=== PATIENT | male | born 1955 | race African-American/Black ===

== ENCOUNTER → 2020-01-19 | Outpatient (CLI) | payer OTHER ==
[~2020-01-19] MED LIST: AMIODARONE HCL400 MG PO; ASA81BEC PO; BENAZEPRIL HCL40 MG PO; CARVEDILOL25 MG PO; CLONIDINE HCL0.1 M1 PO; FUROSEMIDE 20 M20 MG PO; GLIMEPIRIDE1 MG PO; ISOSORBIDE DINI20 M2 PO; KLOR-CON M2020 MEQ PO; LIPITOR 20 MG T20 M1 PO; VITAMIN D-40010 MCG PO; XARELTO15 MG PO; ZITHROMAX TRI-500 MG PO
[2020-01-19 11:26] LABS: ABSOLUTE BASOPHILS 0.1 thou/uL (0.0-0.2); ABSOLUTE EOSINOPHILS 0.1 thou/uL (0.0-0.7); ABSOLUTE LYMPHOCYTES 1.6 thou/uL (0.8-5.3); ABSOLUTE MONOCYTES 1.1 thou/uL (0.0-1.2); BASOPHILS 0.5 %; EOSINOPHILS 0.9 %; HEMATOCRIT 38.6 % (42.0-52.0); HEMOGLOBIN 12.1 gm/dL (14.0-18.0); LYMPHOCYTES 14.8 %; MCH 28.5 pg (26.0-34.0); MCHC 31.4 g/dL (28.0-37.0); MCV 90.8 fL (80.0-100.0); MONOCYTES 9.9 %; MPV 9.4 fl. (7.2-11.1); NUCLEATED RBCS 0 /100WBC; PLATELET COUNT* 239 thou/uL (150-400); POLYS 73.9 %; RBC 4.25 mil/uL (4.50-6.00); RDW-CV 19.4 % (10.5-14.5); WBC 10.8 thou/uL (4.0-11.0)
[2020-01-19 11:38] LABS: ALBUMIN 3.4 g/dL (3.4-5.0); CALCIUM 8.8 mg/dL (8.5-10.1); CREATININE 2.7 mg/dL (0.6-1.3); MAGNESIUM 2.3 mg/dL (1.8-2.4); POTASSIUM 3.4 mmol/L (3.5-5.1); TOTAL BILIRUBIN 0.7 mg/dL (<0.1-1.0); TOTAL PROTEIN 7.7 g/dL (6.4-8.2)
== END ==
LOC: M.LAB 10:00
PROVIDERS: ATTEND Nurse Practitioner
DX: I48.92 Unspecified atrial flutter (principal); N18.3 Chronic kidney disease, stage 3 (moderate); M43.8X4 Other specified deforming dorsopathies, thoracic region; Z79.899 Other long term (current) drug therapy

== ENCOUNTER 2020-02-01 10:50 | Inpatient (IN) | payer OTHER ==
[~2020-02-01] VITALS: Ht 180.3 cm; Wt 104.3 kg
[2020-02-01 10:55] VITALS: BP 154/109
[2020-02-01] MEDS ORDERED: GLIMEPIRIDE1 MG PO (11:04)
[2020-02-01] MEDS ORDERED: CARVEDILOL25 MG PO (11:04)
[2020-02-01] MEDS ORDERED: BENAZEPRIL HCL40 MG PO (11:05)
[2020-02-01] MEDS ORDERED: FUROSEMIDE 20 M20 MG PO (11:05)
[2020-02-01] MEDS ORDERED: CLONIDINE HCL0.1 M1 PO (11:05)
[2020-02-01] MEDS ORDERED: ASA81BEC PO (11:05)
[2020-02-01] MEDS ORDERED: VITAMIN D-40010 MCG PO (11:06)
[2020-02-01] MEDS ORDERED: ISOSORBIDE DINI20 M2 PO ×2 (11:06)
[2020-02-01] MEDS ORDERED: KLOR-CON M2020 MEQ PO (11:07)
[2020-02-01] MEDS ORDERED: XARELTO15 MG PO (11:07)
[2020-02-01] MEDS ORDERED: LIPITOR 20 MG T20 M1 PO (11:07)
[2020-02-01 11:16] LABS: ABSOLUTE BASOPHILS 0.1 thou/uL (0.0-0.2); ABSOLUTE EOSINOPHILS 0.1 thou/uL (0.0-0.7); ABSOLUTE LYMPHOCYTES 1.1 thou/uL (0.8-5.3); ABSOLUTE MONOCYTES 1.2 thou/uL (0.0-1.2); BASOPHILS 0.8 %; EOSINOPHILS 0.8 %; HEMATOCRIT 36.4 % (42.0-52.0); HEMOGLOBIN 11.5 gm/dL (14.0-18.0); LYMPHOCYTES 7.4 %; MCH 28.4 pg (26.0-34.0); MCHC 31.4 g/dL (28.0-37.0); MCV 90.5 fL (80.0-100.0); MONOCYTES 8.3 %; MPV 10.7 fl. (7.2-11.1); NUCLEATED RBCS 0 /100WBC; PLATELET COUNT* 213 thou/uL (150-400); POLYS 82.7 %; RBC 4.03 mil/uL (4.50-6.00); WBC 14.5 thou/uL (4.0-11.0)
[2020-02-01 11:28] LABS: APTT 30.8 Seconds (25.0-31.3); INR 1.5; PROTIME 15.6 Seconds (9.20-11.50)
[2020-02-01 11:45] LABS: CALCIUM 8.8 mg/dL (8.5-10.1); POTASSIUM 3.9 mmol/L (3.5-5.1)
[2020-02-01 11:48] LABS: ALBUMIN 3.3 g/dL (3.4-5.0); CK-MB MASS 0.7 ng/mL (<0.5-3.6); MAGNESIUM 2.3 mg/dL (1.8-2.4); TOTAL PROTEIN 7.2 g/dL (6.4-8.2)
--- NOTE | 2020-02-01 16:20 | EKG ---
[place] [address] ELECTROCARDIOGRAM REPORT Name: ALEX JOSHI Room: [place] [address] ADM IN [facility]#: [id number] Admission: 02/01/20 Attend Phys: Laura urban Sa Discharge: Date of : 53 Date of Service: 02/01/20 1058 Report #: [id number] THIS REPORT FOR: //name// [facility] ED Test Date: 2020-02-01 Test Time: 10:58:06 Pat Name: ALEX JOSHI Department: Room: [facility] Gender: M Yardage Control Clerk: EDUARD : 1955 Requested By: Jose D Fish Order Number: [id number] MD: Edmund Maurer Measurements Intervals [place] Rate: 112 P: 90 [place]: 116 QRS: 2 QRSD: 88 T: 143 QT: 337 QTc: 460 Interpretive Statements Sinus tachycardia Repol abnrm, possible ischemia Baseline wander in lead(s) I,II,aVR No previous ECG available for comparison Electronically Signed On 02-01-2020 16:20:10 CDT by Edmund Maurer [email or web address] <ELECTRONICALLY SIGNED> By: Edmund Maurer MD, [facility] 02/01/20 1620 1058 1058 Edmund Maurer MD, [facility] /EPI
[2020-02-01 17:22] VITALS: BP 142/103
[2020-02-01 18:00] VITALS: BP 119/90
[2020-02-01 18:09] VITALS: BP 137/104
--- NOTE | 2020-02-01 18:38 | NUR ---
PT ADMITTED TO ROOM 226 AROUND 1800 WITH DX CHF EXACERBATION. PT ON ENHANCED PRECAUTIONS ISOLATION TO RULE OUT COVID. TOLERATING RA WITH SATS >92%. PT TO BE NPO AFTER MIDNIGHT FOR CARDIOLOGY CONSULT. NO OTHER CONCERNS AT THIS TIME. CLWR. WCTM.
[2020-02-01 20:00] VITALS: BP 128/84
[2020-02-02 00:40] VITALS: BP 116/85
[2020-02-02 04:10] VITALS: BP 130/100
[2020-02-02 05:17] LABS: CALCIUM 8.9 mg/dL (8.5-10.1); CREATININE 3.4 mg/dL (0.6-1.3); MAGNESIUM 2.5 mg/dL (1.8-2.4); PHOSPHORUS* 5.6 mg/dL (2.5-4.9); POTASSIUM 3.8 mmol/L (3.5-5.1)
[2020-02-02 05:35] LABS: HEMATOCRIT 35.3 % (42.0-52.0); HEMOGLOBIN 11.2 gm/dL (14.0-18.0); MCH 28.7 pg (26.0-34.0); MCHC 31.7 g/dL (28.0-37.0); MCV 90.3 fL (80.0-100.0); MPV 11.2 fl. (7.2-11.1); RBC 3.91 mil/uL (4.50-6.00); RDW-CV 20.1 % (10.5-14.5); WBC 13.7 thou/uL (4.0-11.0)
--- NOTE | 2020-02-02 06:27 | NUR ---
ASSUMED PT CARE AT 1915. NURSING ASSESSMENT COMPLETED AT START OF SHIFT. HOURLY ROUNDING COMPLETED. IV AMIODARONE INFUSING. HOURLY ROUNDING COMPLETED. PT CONTINUES ON ENHANCED PRECAUTIONS AWAITING COVID-19 RESULTS. NPO AFTER MIDNIGHT FOR CARDIOLOGY. 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 CALL LIGHT WITHIN REACH.
[2020-02-02 08:00] VITALS: BP 113/80
--- NOTE | 2020-02-02 08:41 | CON ---
[address] [address] CONSULTATION Name: TREVONCHADWICKALEX Room: [address] IN M.R.#: [id number] Admission: 02/01/20 Attend Phys: Laura Sharma Discharge: Date of : 53 Report #: [id number] THIS REPORT FOR: //name// cc: Rick Jones MD, Khanh MD ~ THIS REPORT FOR: //name// CC: Laura Caraballo DATE OF SERVICE: 02/01/2020 INDICATION: Acute on chronic systolic heart failure and atrial fibrillation with rapid ventricular response rate. HISTORY OF PRESENT ILLNESS: The patient is a very pleasant 64-year-old gentleman who is well known to our service. He has a history of nonischemic cardiomyopathy, chronic systolic heart failure, hypertension, dyslipidemia, obstructive sleep apnea, paroxysmal atrial flutter and chronic renal insufficiency. Historically, the ejection fraction had been 40-45%. By echocardiogram today, his ejection fraction has fallen to 20-25%. He is having symptoms of increased shortness of breath, dyspnea and orthopnea. He has had increased lower extremity edema. EKG shows atrial fibrillation with a rapid ventricular response rate. The patient had been on an amiodarone load with the thought of cardioversion in the near future. He is anticoagulated and having no bleeding problems. He is without other cardiac complaint. PAST MEDICAL HISTORY: 1. Nonischemic cardiomyopathy. 2. Chronic systolic heart failure. 3. Hyperlipidemia. 4. Obstructive sleep apnea. 5. Hypertension. 6. Chronic renal insufficiency. 7. Type 2 diabetes mellitus. FAMILY HISTORY: Positive for heart disease in his mother. SOCIAL HISTORY: The patient is a lifelong nonsmoker. He drinks alcohol rarely. HOME MEDICATIONS: Amiodarone 200 mg daily, atorvastatin 10 mg daily, Lotensin 40 mg daily, carvedilol 25 mg b.i.d., clonidine 0.1 mg p.o. b.i.d., furosemide 20 mg daily, isosorbide dinitrate 20 mg b.i.d., Xarelto 15 mg daily, vitamin D3 of [address] [place] [address] CONSULTATION Name: TREVONCHADWICKALEX Wagoner Room: [address]#: [id number] Admission: 02/01/20 Attend Phys: Laura Sharma Discharge: Date of : 53 Report #: [id number] ALLERGIES: No known drug allergies. REVIEW OF SYSTEMS: On 14-point review of systems, he denies any chills, fever or weight loss. No history of bleeding problems. He denies chest pain or claudication. He does have some lower extremity swelling. He denies syncope. He has had some palpitations and some orthopnea. He denies syncope. He does have shortness of breath with activity. He denies shortness of breath at rest. He denies cold or heat intolerance. He has no bleeding problems. He denies any recent hives or rashes. He denies any myalgias or joint pain. He denies abdominal pain, nausea, vomiting, or diarrhea. He denies dizziness, lightheadedness or syncope. PHYSICAL EXAMINATION: VITAL SIGNS: Blood pressure 154/102, pulses in the 110s and irregular. GENERAL: This is a pleasant gentleman who is in no distress. Mood and affect appropriate. HEENT: Extraocular muscles intact. Mucous membranes are moist. NECK: Shows jugular venous distention without bruit. CHEST: Reveals diminished breath sounds. I do not appreciate navin rales. CARDIAC: Reveals a tachycardic rhythm that is irregularly irregular. ABDOMEN: Reveals normal bowel sounds. The abdomen is soft, nontender. EXTREMITIES: Shows 1+ pedal and ankle edema. LABORATORY DATA: A 12-lead EKG shows atrial fibrillation with a rapid ventricular response rate. There are no acute ST or T-wave abnormalities. IMPRESSION AND RECOMMENDATIONS: 1. Persistent atrial fibrillation/flutter with rapid ventricular response rate. We will place the patient on amiodarone drip with a bolus and plan for cardioversion. Continue anticoagulation. 2. Nonischemic cardiomyopathy with an EF that appears worse, likely due to rapid ventricular response rate to his atrial arrhythmias. Consider rhythm control. Consider ablation if this fails. We will adjust hypertensive and heart failure medications as tolerated. 3. Hypertension. Blood pressure mildly elevated at this time. Increasing carvedilol to 50 mg twice daily. Continue clonidine and hydralazine at current doses. 4. Chronic renal insufficiency, presently stable. We will obtain labs in a.m. 5. The patient on amiodarone. Orders for metabolic profile, thyroid function studies, chest x-rays submitted. [address] [address] CONSULTATION Name: ALEX JOSHI Room: 226-[facility] IN MJose Carlos.#: [id number] Admission: 02/01/20 Attend Phys: Laura Sharma Discharge: Date of : 53 Report #: [id number] 6. Acute on chronic systolic heart failure. Continue aggressive treatment with medication. We will give IV furosemide today for symptomatic relief. <ELECTRONICALLY SIGNED> By: Pedrito Caraballo MD, FACC 02/02/20 0841 1711 1730Micelizabeth Caraballo MD, FACC /nt
--- NOTE | 2020-02-02 08:45 | NUR ---
SPOKE WITH PT.ON PHONE 2ND COVID TEST STILL PENDING. HE SAID HIS GIRLFRIEND,ROSANA LIVES WITH HIM. HE IS INDEPENDEMT AMD A RETIRED SW ONLY DME IS A CPAP, NO O2. DISCUSSED AD AND DPOAS. RN,GONZALO WILL GIVE HIM ONE TO TAKE HOME AND FILL OUT. HE KNOWS IT NEEDS TO BE NOTARIZED. HE WILL HAVE CARDIOVERSION THIS AM AND THEN HOPES TO GO HOME. NO DISCHARGE NEEDS IDENTIFIED.
[2020-02-02 10:00] VITALS: BP 113/80
[2020-02-02] MEDS ORDERED: AMIODARONE HCL400 MG PO (12:20)
[2020-02-02] MEDS ORDERED: ZITHROMAX TRI-500 MG PO (12:23)
--- NOTE | 2020-02-02 13:27 | NUR ---
VS CHARTED, AFLUTTER ON TELE- CARDIOVERTED TO SR, ROOM AIR, A&OX4, UP AD DIGNA, HOURLY ROUNDING PERFORMED, COVID SECOND TEST PENDING- ENHANCED ISOLATION, REC DISCHARGE ORDERS, REVIEWED WITH PATIENT, HF EDUCATION COMPLETED, CARD. OLGA LIDIA MONDRAGON CAME AND DISCUSSED AMIODORONE LOADING DOSE, TELE MONITOR AND IVS REMOVED WITHOUT COMPLICATION, PATIENT TAKEN TO ER EXIT BY NURSING STAFF IN WHEELCHAIR, PICKED UP IN FAMILY CAR BY SPOUSE
--- NOTE | 2020-02-07 08:44 | CARD ---
[address] [address] CARDIAC CATH REPORT Name: ALEX JOSHI Ciaran Room: [address]R#: [id number] Admission: 02/01/20 Attend Phys: Laura Sharma Discharge: 02/02/20 Date of : 53 Report #: [id number] THIS REPORT FOR: //name// cc: Rick Jones MD, Khanh MD ~ CC: Dr. Karen Brown CARDIAC PROCEDURE PROCEDURE: DC cardioversion. INDICATION: Persistent atrial flutter. DESCRIPTION OF PROCEDURE: After informed consent was obtained, the patient was given intravenous Versed and fentanyl for conscious sedation. Once the patient was adequately sedated, he was cardioverted from atrial flutter to normal sinus rhythm with a single biphasic shock of 300 joules. The patient tolerated the procedure well without complication. IMPRESSION: 1. Persistent atrial flutter. 2. Successful direct current cardioversion to normal sinus rhythm. <ELECTRONICALLY SIGNED> By: Pedrito Caraballo MD, [facility] 02/07/20 0844 0834 0849Micelizabeth Caraballo MD, FACC /nt
== END 2020-02-02 12:40 | disposition home or self-care (01) | DRG 291 ==
LOC: M.ERS 10:50 → M.2W 12:49 → M.TBA-ER 12:49 → M.2W 18:02
PROVIDERS: Family Medicine; ADMIT Family Medicine; ATTEND Family Medicine
PROC: 5A2204Z Restoration of Cardiac Rhythm, Single (ICD-10-PCS; principal; 2020-02-01)
DX: I13.0 Hypertensive heart and chronic kidney disease with heart failure and stage 1 through stage 4 chronic kidney disease, or unspecified chronic kidney disease (principal); I50.23 Acute on chronic systolic (congestive) heart failure; J18.9 Pneumonia, unspecified organism; R65.11 Systemic inflammatory response syndrome (SIRS) of non-infectious origin with acute organ dysfunction; N17.9 Acute kidney failure, unspecified; E44.1 Mild protein-calorie malnutrition; I48.92 Unspecified atrial flutter; I48.19 Other persistent atrial fibrillation; N18.3 Chronic kidney disease, stage 3 (moderate); E11.22 Type 2 diabetes mellitus with diabetic chronic kidney disease; E78.5 Hyperlipidemia, unspecified; F12.90 Cannabis use, unspecified, uncomplicated; I42.8 Other cardiomyopathies; G47.33 Obstructive sleep apnea (adult) (pediatric); T50.2X5A Adverse effect of carbonic-anhydrase inhibitors, benzothiadiazides and other diuretics, initial encounter; Z20.828 Contact with and (suspected) exposure to other viral communicable diseases; Y92.89 Other specified places as the place of occurrence of the external cause; Z82.49 Family history of ischemic heart disease and other diseases of the circulatory system; Z68.32 Body mass index [BMI] 32.0-32.9, adult; Z79.82 Long term (current) use of aspirin; Z79.899 Other long term (current) drug therapy

== ENCOUNTER → 2020-06-11 | Outpatient (CLI) | payer OTHER ==
[2020-06-11 11:20] LABS: ALBUMIN 2.5 g/dL (3.4-5.0); CALCIUM 8.5 mg/dL (8.5-10.1); CREATININE 2.9 mg/dL (0.6-1.3); POTASSIUM 3.4 mmol/L (3.5-5.1); TOTAL BILIRUBIN 0.8 mg/dL (<0.1-1.0); TOTAL PROTEIN 6.2 g/dL (6.4-8.2)
== END ==
LOC: M.LAB 10:38
PROVIDERS: ATTEND Registered Nurse
DX: I50.42 Chronic combined systolic (congestive) and diastolic (congestive) heart failure (principal)

== ENCOUNTER 2020-06-14 02:50 | Inpatient (IN) | payer OTHER ==
[2020-06-14] VITALS (15 sets, daily range): BP systolic 111–210; BP diastolic 66–91
[~2020-06-14] VITALS: Ht 182.9 cm; Wt 108.7 kg
[2020-06-14 03:48] LABS: HEMATOCRIT 33.1 % (42.0-52.0); HEMOGLOBIN 9.9 gm/dL (14.0-18.0); MCHC 29.8 g/dL (28.0-37.0); MCV 73.9 fL (80.0-100.0); MPV 9.3 fl. (7.2-11.1); NUCLEATED RBCS 0 /100WBC; PLATELET COUNT* 191 thou/uL (150-400); RBC 4.48 mil/uL (4.50-6.00); RDW-CV 26.3 % (10.5-14.5); WBC 14.6 thou/uL (4.0-11.0)
[2020-06-14 04:03] LABS: CALCIUM 8.4 mg/dL (8.5-10.1); CREATININE 2.9 mg/dL (0.6-1.3); POTASSIUM 3.7 mmol/L (3.5-5.1)
[2020-06-14 04:05] LABS: INR 1.8; PROTIME 18.2 Seconds (9.20-11.50)
[2020-06-14 04:17] LABS: ALBUMIN 2.3 g/dL (3.4-5.0); TOTAL BILIRUBIN 2.4 mg/dL (<0.1-1.0); TOTAL PROTEIN 6.6 g/dL (6.4-8.2)
[2020-06-14 06:57] LABS: ABSOLUTE LYMPHOCYTES 0.4 thou/uL (0.8-5.3); ABSOLUTE MONOCYTES 1.5 thou/uL (0.0-1.2); ABSOLUTE NEUTROPHILS 12.7 thou/uL (1.6-8.1); PLATELET ESTIMATE ADEQUATE; TARGET CELLS 2+
[2020-06-14 06:59] LABS: ANISOCYTOSIS 3+; HYPOCHROMASIA 2+; MICROCYTES 2+
[2020-06-14 07:01] LABS: SCHISTOCYTES 1+
--- NOTE | 2020-06-14 08:23 | NUR ---
0815 RESIDENT PHYSICIAN AT BEDSIDE [address]23 DR VILLA AT BEDSIDE
--- NOTE | 2020-06-14 09:27 | EKG ---
[place] [address] ELECTROCARDIOGRAM REPORT Name: ALEX JOSHI Room: [address] ADM IN .R.#: [id number] Admission: 06/14/20 Attend Phys: Jania Dos Santos Discharge: Date of : 53 Date of Service: 06/14/20 0305 Report #: [id number] THIS REPORT FOR: //name// [facility] ED Test Date: 2020-06-14 Test Time: 03:05:55 Pat Name: ALEX JOSHI Department: Room: [facility] Gender: M Clinical Quality Analyst: YADIRA : 1955 Requested By: Mackenzie Constantino Order Number: [id number] MD: James Ahn Measurements Intervals [place] Rate: 76 P: 4 [place]: 179 QRS: -7 QRSD: 95 T: 190 QT: 366 QTc: 412 Interpretive Statements Sinus rhythm Borderline repolarization abnormality Compared to ECG 02/01/2020 10:58:06 Sinus tachycardia no longer present Possible ischemia no longer present Electronically Signed On 06-14-2020 9:27:04 HAM STRIPPER by James Ahn [email or web address] <ELECTRONICALLY SIGNED> By: James Ahn MD, FACC 06/14/20 0927 0305 James Ahn MD, [facility] /EPI
[2020-06-14 14:13] LABS: CALCIUM 8.7 mg/dL (8.5-10.1); POTASSIUM 3.8 mmol/L (3.5-5.1)
[2020-06-14 14:16] LABS: PHOSPHORUS* 4.9 mg/dL (2.5-4.9)
--- NOTE | 2020-06-14 16:33 | CON ---
[address] [address] CONSULTATION Name: ALEX JOSHI Room: [address] IN .R.#: [id number] Admission: 06/14/20 Attend Phys: Darian Raman Discharge: Date of : 53 Report #: [id number] THIS REPORT FOR: //name// cc: Rick Jones MD, Khanh MD ~ DATE OF SERVICE: 06/14/2020 CARDIOLOGY CONSULTATION PRIMARY CARE PHYSICIAN: Rick Jones MD HISTORY OF PRESENT ILLNESS: The patient is a 65-year-old single black male who I was asked to see in the ICU today because of his history of a cardiomyopathy. The patient has an extensive past medical history. He has been followed by my partner, Dr. Caraballo. He has an ejection fraction of 20% in the past. In January of this year, he presented with atrial flutter and was cardioverted and placed on amiodarone and Xarelto. He was actually admitted to [facility] in [place] 2 weeks ago with shortness of breath and edema. He was diuresed. He had an echocardiogram at that time that showed an ejection fraction of less than 20%, left atrial enlargement, moderate mitral regurgitation. PA pressure 75 mmHg. The patient actually saw my nurse practitioner, Halley Urena 3 days ago and he was started on hydralazine for his cardiomyopathy. He does get short of breath with exertion, but his edema has improved. He denies recent fever, cough, chest pain, palpitations. He is scheduled to undergo defibrillator implantation in the future. He was doing well until last night, when he complained of abdominal discomfort. He was brought to the Emergency Room and admitted with an acute abdomen. Cardiology consultation requested. Denied any vomiting, diarrhea. PAST MEDICAL HISTORY: Otherwise, he has had no surgical procedures. He does have a history of sleep apnea, uses CPAP. He has a long history of hypertension and chronic kidney disease, and hyperlipidemia. MEDICATIONS: Include amiodarone, Lipitor, carvedilol, clonidine, Lasix, glimepiride, Isordil, hydralazine, Xarelto. ALLERGIES: He has no known drug allergies. FAMILY HISTORY: Positive for heart disease. SOCIAL HISTORY: He is single, lives with a girlfriend here in [place], [place]. 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 No smoking. Rarely drinks alcohol. [place] [address] CONSULTATION Name: ALEX JOSHI Room: [address]#: [id number] Admission: 06/14/20 Attend Phys: Darian Raman Discharge: Date of : 53 Report #: [id number] REVIEW OF SYSTEMS: No history of stroke, asthma, liver disease. He has chronic kidney disease. No cancer. No psychiatric illness. PHYSICAL EXAMINATION: GENERAL: Revealed an elderly male, lying in bed, who appeared in no acute distress. VITAL SIGNS: He had a blood pressure of 120/70, pulse is 80. He is afebrile. HEENT: He was anicteric. Conjunctivae pink. Mucous membranes moist. NECK: Veins do not appear distended. No carotid bruits. CHEST: Clear to auscultation. CARDIOVASCULAR: Regular rate and rhythm, no murmur. ABDOMEN: Distended. It was tender to touch. EXTREMITIES: Had trace edema. SKIN: Warm and dry. RADIOLOGICAL DATA: His ECG on admission last night showed a sinus rhythm, nonspecific T-wave changes. His workup, he had a portable chest x-ray done last night that showed atelectasis, small left effusion, normal heart size. LABORATORY DATA: Sodium 142, BUN 38, creatinine 2.9, it has been as high as 3.4 in January of this year. His bilirubin is 2.4. Alkaline phosphatase is 189, albumin 2.3. Troponin 0.06. BNP 31,295. White blood cell count 14.6, hemoglobin 9.9. IMPRESSION AND RECOMMENDATIONS: 1. Acute abdomen. The patient might require surgery. He is at risk for cardiac complications of surgery due to severe dilated cardiomyopathy. The patient actually had a nuclear stress test in 2018 that showed no evidence of ischemia. 2. Nonischemic dilated cardiomyopathy. The patient appears stable on a beta jarret, Lasix, nitrates and hydralazine. I would not recommend Aldactone because of chronic kidney disease. 3. History of atrial flutter. The patient on amiodarone and Xarelto. 4. Hypertension. The patient on beta jarret, clonidine and hydralazine. 5. Sleep apnea. The patient uses CPAP. 6. Chronic kidney disease. The patient followed by Nephrology. <ELECTRONICALLY SIGNED> By: James Ahn MD, FACC 06/14/20 1633 1137 1226Daviantonella Ahn MD, FACC /nt
[2020-06-15] VITALS (9 sets, daily range): BP systolic 106–142; BP diastolic 66–83
--- NOTE | 2020-06-15 08:00 | NUR ---
ASSESSMENTS CHARTED. PATIENT'S BLOOD GLUCOSE LEVELS STAYING LOW. HYPOGLYCEMIA PROTOCOL STARTED, D50 GIVEN TWICE THIS SHIFT. PAGED TO DR. GOLDEN THIS AM FOR RECOMMENDATIONS. NO CALL BACK OR ORDERS RECIEVED. SURGERY ROUNDED ON PATIENT THIS AM. NO ADDITIONAL ORDERS. PATIENT POTENTIALLY ABLE TO TRANSFER TO [place] TODAY. UNABLE TO TRANSFER LAST NIGHT DUE TO NO BED AVAILABILITY.
[2020-06-15 08:31] LABS: ABSOLUTE EOSINOPHILS 0.1 thou/uL (0.0-0.7); ABSOLUTE LYMPHOCYTES 0.8 thou/uL (0.8-5.3); ABSOLUTE MONOCYTES 1.1 thou/uL (0.0-1.2); ABSOLUTE NEUTROPHILS 10.9 thou/uL (1.6-8.1); BASOPHILS 0.3 %; EOSINOPHILS 0.4 %; HEMATOCRIT 31.6 % (42.0-52.0); HEMOGLOBIN 9.2 gm/dL (14.0-18.0); MCH 21.8 pg (26.0-34.0); MCV 75.2 fL (80.0-100.0); MONOCYTES 8.6 %; MPV 8.9 fl. (7.2-11.1); NUCLEATED RBCS 0 /100WBC; PLATELET COUNT* 188 thou/uL (150-400); POLYS 84.7 %; RBC 4.21 mil/uL (4.50-6.00); WBC 12.9 thou/uL (4.0-11.0)
[2020-06-15 08:49] LABS: CALCIUM 8.2 mg/dL (8.5-10.1); POTASSIUM 3.6 mmol/L (3.5-5.1); TOTAL BILIRUBIN 1.4 mg/dL (<0.1-1.0); TOTAL PROTEIN 6.2 g/dL (6.4-8.2)
--- NOTE | 2020-06-15 09:30 | NUR ---
CM SPOKE TO [facility] TRANSFER TEAM TO DISCUSS THE NEED TO DISCUSS TRANSFER INITIATED YESTERDAY FOR PATIENT. [facility] INFOMS THAT PT HAD BEEN DECLINED YESTERDAY THE FACILITY WAS 'AT CAPACITY'. CM ASKED [facility] TRANSFER TEAM TO RE-EVALUATE ABILITY TO ACCEPT THE PT. [facility] TRANSFER TEAM CONNECTED THE HOSPITALIST WITH THEIR TRANSFER PHYSCIAN AND RETURNED CALL TO INFORM THAT THEY ARE 'DECLINING THE PT AND WILL NOT BE PLACING HIM ON THE WAIT LIST. THE FACILITY REMAINS AT CAPACITY AND THEY ARE UNABLE TO ACCEPT THE PT. CM TO INFORM THE RN IN-CHARGE OF THE PT OF THIS INFO. CM WILL REMAIN AVAILABLE TO ASSIST AND FOLLOW NEEDED. [facility] TRANSFER TEAM PHONE: [phone]
[2020-06-15 10:52] LABS: ANISOCYTOSIS 3+; HYPOCHROMASIA 2+; PLATELET ESTIMATE ADEQUATE
[2020-06-15 10:53] LABS: OVALOCYTES Occasional; TEARDROPS Occasional
--- NOTE | 2020-06-15 17:26 | NUR ---
RECEIVED CALL FROM [facility] ACCEPTING PT. PAPERWORK FAXED TO EMS. REPORT CALLED TO AFTAB DUGGAN AT [facility]. PT AGREES TO TRANSFER
--- NOTE | 2020-06-15 17:40 | NUR ---
AWAITING TRANSFER. PT DENIES PAIN. RESTING IN BED THROUGHTOUT SHIFT.REPOSTIONS SELF WELL. NSR ON MONITOR. VSS. SOA WHEN LYING FLAT. PT ASSISTED IN STANDING TO VOID. BLOOD SUGARS LOW AND HAD TO BE GIVEN D50 MULTIPLE TIMES THIS SHIFT. NPO PER SURGERY
--- NOTE | 2020-06-15 18:59 | NUR ---
PT LEFT UNIT TO GO TO [facility]IA EMS. A&OX4.VSS
== END 2020-06-15 18:30 | disposition short-term general hospital (02) | DRG 871 ==
LOC: M.ERS 02:50 → M.ICU 05:24 → M.TBA-ER 05:24 → M.ICU 07:35
PROVIDERS: Internal Medicine; Personal Emergency Response Attendant; Surgery; ADMIT Internal Medicine; ATTEND Internal Medicine
DX: A41.9 Sepsis, unspecified organism (principal); K63.1 Perforation of intestine (nontraumatic); J18.9 Pneumonia, unspecified organism; K65.9 Peritonitis, unspecified; R18.8 Other ascites; I13.0 Hypertensive heart and chronic kidney disease with heart failure and stage 1 through stage 4 chronic kidney disease, or unspecified chronic kidney disease; N18.4 Chronic kidney disease, stage 4 (severe); I42.0 Dilated cardiomyopathy; E11.22 Type 2 diabetes mellitus with diabetic chronic kidney disease; E78.5 Hyperlipidemia, unspecified; I50.9 Heart failure, unspecified; I48.91 Unspecified atrial fibrillation; E11.649 Type 2 diabetes mellitus with hypoglycemia without coma; G47.30 Sleep apnea, unspecified; Z20.828 Contact with and (suspected) exposure to other viral communicable diseases; Z79.899 Other long term (current) drug therapy; Z79.01 Long term (current) use of anticoagulants; Z99.81 Dependence on supplemental oxygen; Z72.89 Other problems related to lifestyle

== ENCOUNTER → 2020-11-26 | Outpatient (CLI) | payer OTHER ==
[~2020-11-26] VITALS: Ht 182.9 cm; Wt 75.3 kg
[2020-11-26] VITALS (9 sets, daily range): BP systolic 134–147; BP diastolic 65–97
[~2020-11-26] MED LIST changes: +ACEROLA C500 MG PO; +ACIDOPHILUS1 EAC4 PO; +ALLOPURINOL 10100 M3 PO; +CARVEDILOL12.5 MG PO; +CLONIDINE HCL0.1 MG PO; +ELIQUIS5 MG PO; +FLAGYL500 M1 PO; +FOLIC ACID1 MG PO; +HUMALOG100 UNIT/1 SUBQ; +HYDRALAZINE 2525 M1 PO; +HYDRALAZINE 5050 MG PO; +HYDROCODON-ACE1 EAC7 PO; +ISO D3 2,000 U1 EACH PO; +LANTUS SUBQ; +LEVOFLOXACIN750 MG PO; +LISINOPRIL5 MG PO; +LOPERAMIDE 2 MG2 M1 PO; +PACERONE200 MG PO; +PROAIR HFA8.5 GM INH; +PROBIOTIC1 EAC1 PO; +PROCRIT10000 UNIT SUBQ; +PROTONIX40 M2 PO; +SENNA8.6 MG PO; +TORSEMIDE10 MG PO; +VITAMIN D310 MC4 PO; +VOLTAREN GEL 1100 G1 TOP; +ZINC SULFATE 2220 MG PO; +ZOFRAN 4 MG ORAL4 MG PO; +ZOSYN 2.252.25 GM/51 IV
--- NOTE | 2020-11-26 08:35 | EKG ---
[place] [address] ELECTROCARDIOGRAM REPORT Name: ALEX JOSHI Room: [facility]#: [id number] Admission: 11/26/20 Attend Phys: Pedrito Caraballo, Discharge: Date of : 53 Date of Service: 11/26/[address] Report #: [id number] THIS REPORT FOR: //name// [facility] Test Date: 2020-11-26 Test Time: 08:31:30 Pat Name: ALEX JOSHI Department: Room: Gender: Solar Consultant: : 1955 Requested By: Pedrito Caraballo Order Number: [id number] Dave MD: Pedrito Caraballo Measurements Intervals [place] Rate: 74 P: -21 GA: 211 QRS: -11 QRSD: 102 T: 198 QT: 417 QTc: 463 Interpretive Statements Sinus rhythm LVH with secondary repolarization abnormality Compared to ECG 06/14/2020 03:05:55 Left ventricular hypertrophy now present Electronically Signed On 11-26-2020 8:35:17 CDT by Pedrito Caraballo [email or web address] <ELECTRONICALLY SIGNED> By: Pedrito Caraballo MD, [facility] 11/26/20 0835 0 0 Pedrito Caraballo MD, [facility] /EPI
[2020-11-26 09:19] LABS: ABSOLUTE EOSINOPHILS 0.1 thou/uL (0.0-0.7); ABSOLUTE LYMPHOCYTES 1.5 thou/uL (0.8-5.3); ABSOLUTE MONOCYTES 0.5 thou/uL (0.0-1.2); ABSOLUTE NEUTROPHILS 4.3 thou/uL (1.6-8.1); BASOPHILS 0.5 %; EOSINOPHILS 1.2 %; HEMOGLOBIN 8.8 gm/dL (14.0-18.0); LYMPHOCYTES 23.3 %; MCH 28.1 pg (26.0-34.0); MCHC 31.4 g/dL (28.0-37.0); MCV 89.5 fL (80.0-100.0); MONOCYTES 8.1 %; MPV 10.2 fl. (7.2-11.1); NUCLEATED RBCS 0 /100WBC; PLATELET COUNT* 157 thou/uL (150-400); POLYS 66.9 %; RBC 3.13 mil/uL (4.50-6.00); RDW-CV 17.3 % (10.5-14.5); WBC 6.5 thou/uL (4.0-11.0)
[2020-11-26 09:24] LABS: CALCIUM 8.6 mg/dL (8.5-10.1); CREATININE 2.3 mg/dL (0.6-1.3)
[2020-11-26 09:37] LABS: APTT 36.1 Seconds (25.0-31.3); INR 1.5; PROTIME 15.3 Seconds (9.20-11.50)
--- NOTE | 2020-11-26 14:03 | CARD ---
[address] [address] CARDIAC CATH REPORT Name: [facility]LEX JOSHI [id number] Admission: 11/26/20 Attend Phys: Pedrito Caraballo MD Discharge: Date of : 53 Report #: [id number] THIS REPORT FOR: cc: Rick Jones MD, Khanh MD Liston, Michael J. MD [facility] ~ APPROVED REPORT Study performed: 11/26/2020 09:47:20 Patient Status: Out-Patient Room #: Event Personnel: Pedrito Caraballo Social Group Worker, Venessa Dubose RN Plasterer Foreman, Dez Ruiz RTR Monitor, Hodan Nguyen RTR Scrub Exam: Single-chamber ICD placement Indications: Primary prevention in patient with history of nonischemic cardiomyopathy The patient is a 65 year-old male with a history of Cardiomyopathy (Nonischemic). Patient Info Last EF%: 25 Date: August, NYHA Heart Class: III Reason for implant: Primary prevention Intraoperative Conscious Sedation Sedation start time: 1029 Case end Time: 1056 Fentanyl 50 mcg Versed 2 mg Implanted Devices: Acticor 7 VR-T DX, Serial # [id number] single chamber ICD generator. Plexa ProMRI S DX 65/15, model #867765, serial #[id number] pacing ICD lead. Procedure After explaining the risks, benefits, and alternative options, informed consent was obtained from the patient. The patient was brought to the cardiac catheterization lab and the left chest and shoulder were prepped and draped in the usual fashion. During this case, Fluoroscopy and visipaque 20cc were used for imaging. IV conscious sedation was [place] [address] CARDIAC CATH REPORT Name: ALEX JOSHI Room: [facility]#: [id number] Admission: 11/26/20 Attend Phys: Pedrito Caraballo MD Discharge: Date of : 53 Report #: [id number] monitoring and was performed in the presence of a registered nurse who was an independent trained observer other than the physician performing the procedure. After informed consent was obtained the area of the left shoulder was prepped and draped in sterile fashion. Local anesthesia was achieved with 1% lidocaine. Next after an initial incision was made 8 device pocket was formed over the left pectoralis muscle using electrocautery and blunt dissection. Next the left subclavian vein was accessed with a micropuncture kit. Ultimately a safety J guidewire was advanced near the right atrium under fluoroscopic guidance. A 7 Macanese tear-away introducer was advanced over the guidewire. The dilator and guidewire were removed and a pacing ICD lead advanced to secure position within the right ventricular apex. The lead was actively fixed. Thresholds were checked and deemed to be satisfactory. Adequate sensing was assured. Next after adequate slack was assured believe the lead was secured within the pocket using the designated cuff and interrupted stitches of 0 silk suture. The device pocket was then flushed. A pacing ICD generator was attached to the pacing ventricular and atrial leads. The device and redundant lead were then placed within the device pocket. The deep tissues were closed with interrupted stitches of 2-0 Vicryl. The skin incision was then closed with a single subcuticular stitch of 4-0 Vicryl. Several Steri-Strips were placed across the incision. A sterile Telfa dressing was then covered with a Tegaderm. Patient tolerated procedure well without complication. Complications The patient tolerated the procedure well and there were no complications associated with the procedure. Conclusion 1. Nonischemic cardiomyopathy with EF of 25%. 2. Successful placement of a single lead pacing ICD for primary prevention. Recommendations 1. Follow-up site check in 1 week. 2. Follow-up device interrogation in 1 to 2 months. <ELECTRONICALLY SIGNED> By: Pedrito Caraballo MD, [facility] 11/26/20 1403 1403 [facility] Caraballo MD, FACC /INF
--- NOTE | 2020-11-26 14:57 | EKG ---
[place] [address] ELECTROCARDIOGRAM REPORT Name: ALEX JOSHI Room: [facility]#: [id number] Admission: 11/26/20 Attend Phys: Pedrito Caraballo, Discharge: Date of : 53 Date of Service: 11/26/20 1241 Report #: [id number] THIS REPORT FOR: //name// [facility] Test Date: 2020-11-26 Test Time: 12:41:58 Pat Name: ALEX JOSHI Department: Room: Gender: Instructor Nurse: : 1955 Requested By: Pedrito Caraballo Order Number: [id number] Dave MD: Pedrito Caraballo Measurements Intervals [place] Rate: 72 P: -35 MS: 209 QRS: -15 QRSD: 108 T: 196 QT: 432 QTc: 473 Interpretive Statements Sinus rhythm LVH with secondary repolarization abnormality Compared to ECG 11/26/2020 08:31:30 No significant changes Electronically Signed On 11-26-2020 14:57:43 CDT by Pedrito Caraballo [email or web address] <ELECTRONICALLY SIGNED> By: Pedrito Caraballo MD, [facility] 11/26/20 1457 1241 1241 Pedrito Caraballo MD, [facility] /EPI
--- NOTE | 2020-11-26 14:57 | EKG ---
[place] [address] ELECTROCARDIOGRAM REPORT Name: ALEX JOSHI Room: [facility]#: [id number] Admission: 11/26/20 Attend Phys: Pedrito Caraballo, Discharge: Date of : 53 Date of Service: 11/26/20 1243 Report #: [id number] THIS REPORT FOR: //name// [facility] Test Date: 2020-11-26 Test Time: 12:43:18 Pat Name: ALEX JOSHI Department: Room: Gender: Consumer Science Teacher: : 1955 Requested By: Pedrito Caraballo Order Number: [id number] Dave MD: Pedrito Caraballo Measurements Intervals [place] Rate: 71 P: -30 MD: 207 QRS: -14 QRSD: 108 T: 199 QT: 398 QTc: 433 Interpretive Statements Sinus rhythm LVH with secondary repolarization abnormality Compared to ECG 11/26/2020 12:41:58 No significant changes Electronically Signed On 11-26-2020 14:57:45 CDT by Pedrito Caraballo [email or web address] <ELECTRONICALLY SIGNED> By: Pedrito Caraballo MD, [facility] 11/26/20 1457 1243 1243 Pedrito Caraballo MD, [facility] /EPI
== END | disposition home or self-care (01) ==
LOC: M.CL 08:07
PROVIDERS: ATTEND Internal Medicine Cardiovascular Disease
DX: I42.0 Dilated cardiomyopathy (principal); I13.2 Hypertensive heart and chronic kidney disease with heart failure and with stage 5 chronic kidney disease, or end stage renal disease; E11.22 Type 2 diabetes mellitus with diabetic chronic kidney disease; N18.4 Chronic kidney disease, stage 4 (severe); I50.22 Chronic systolic (congestive) heart failure; I48.91 Unspecified atrial fibrillation; K21.9 Gastro-esophageal reflux disease without esophagitis; D50.9 Iron deficiency anemia, unspecified; Z98.890 Other specified postprocedural states; Z79.899 Other long term (current) drug therapy; Z20.822 Contact with and (suspected) exposure to COVID-19; Z87.19 Personal history of other diseases of the digestive system

== ENCOUNTER 2020-11-27 12:05 | Emergency (ER) | payer OTHER ==
[~2020-11-27] VITALS: Ht 182.9 cm; Wt 72.6 kg
[2020-11-27 13:11] VITALS: BP 138/94
== END 2020-11-27 13:12 ==
LOC: M.ERS 12:05
DX: T82.837A Hemorrhage due to cardiac prosthetic devices, implants and grafts, initial encounter (principal); I13.2 Hypertensive heart and chronic kidney disease with heart failure and with stage 5 chronic kidney disease, or end stage renal disease; N18.6 End stage renal disease; I50.9 Heart failure, unspecified; E11.9 Type 2 diabetes mellitus without complications; I48.91 Unspecified atrial fibrillation; K21.9 Gastro-esophageal reflux disease without esophagitis; E78.5 Hyperlipidemia, unspecified; Y83.8 Other surgical procedures as the cause of abnormal reaction of the patient, or of later complication, without mention of misadventure at the time of the procedure; Y92.89 Other specified places as the place of occurrence of the external cause

== ENCOUNTER → 2021-02-27 | Outpatient (CLI) | payer OTHER | LOC: M.RAD 14:42 | PROVIDERS: ATTEND Internal Medicine Critical Care Medicine | DX: R06.02 Shortness of breath (principal); J90 Pleural effusion, not elsewhere classified; J98.11 Atelectasis ==